=== PATIENT | female | born 1985 | race African-American/Black ===

== ENCOUNTER 2019-05-02 21:42 | Emergency (ER) | payer OTHER ==
--- NOTE | 2019-05-02 21:52 | PDOC ---
Rapid Medical Evaluation Time Seen by Provider: 05/02/19 21:50 Medical Evaluation: 05/02/19 21:50 I have performed a brief in-person evaluation of this patient. The patient presents with a chief complaint of: LMP-03/28. lower abdominal cramping with vaginal bleeding. 1 pad/hr Pertinent physical exam findings: deferred I have ordered the following: labs, urine, sono The patient will proceed to the ED for further evaluation. Discharge Disposition - Diagnosis Vaginal bleeding affecting early - Referrals - Patient Instructions - Post Discharge Activity
[2019-05-02 21:54] VITALS: BP 122/77; PULSE 79; TEMP 98; BMI 26.8
--- NOTE | 2019-05-02 22:13 | PDOC ---
History of Present Illness - General Chief Complaint: Vaginal Bleeding Stated Complaint: 5 WKS /BLEEDING Time Seen by Provider: 05/02/19 21:50 - History of Present Illness Initial Comments: 05/02/19 22:12 33yo F A2 at 5w based on LMP with no significant PMH presenting to ED with complaints of vaginal bleeding x5h. Pt states she was at the store when she noticed light bleeding. She got worried when the blood was darker in color. She has used 1 pad so far. Denies heavy bleeding or passing clots. Endorses lower abdominal cramping. She has not had similar problems in her previous pregnancies. Pt states she has used home tests which have given her mixed results. She has not had any follow up or sonography for her current . Denies trauma, n/v/d, chest pain, sob, lightheadedness, palpitations , urinary symptoms. PMD: Castañeda PMH: none PSH: none Meds: PNV Allergies: nkda Social: denies Past History - Past Medical History Allergies/Adverse Reactions: Allergies Allergy/AdvReac Type Severity Reaction Status Date / Time No Known Allergies Allergy Verified 05/02/19 21:54 COPD: No - Suicide/Smoking/Psychosocial Hx Smoking History: Never smoked Review of Systems - Review of Systems Constitutional: No: Symptoms Reported HEENTM: No: Symptoms Reported Respiratory: No: Symptoms reported Cardiac (ROS): No: Lightheadedness ABD/GI: Yes: See HPI, Abdominal cramping : Yes: See HPI Musculoskeletal: No: Symptoms Reported Integumentary: No: Symptoms Reported Neurological: No: Symptoms reported *Physical Exam - Vital Signs Last Vital Signs Temp Pulse Resp BP Pulse Ox 98 F 79 18 122/77 100 05/02/19 21:51 05/02/19 21:51 05/02/19 21:51 05/02/19 21:51 05/02/19 21:51 - Physical Exam General Appearance: Yes: Nourished, Appropriately Dressed, Other (sitting in wheelchair). No: Apparent Distress HEENT: positive: EOMI, JYOTI Neck: positive: Trachea midline Respiratory/Chest: positive: Lungs Clear, Normal Breath Sounds Cardiovascular: positive: Regular Rhythm, Regular Rate, S1, S2. negative: Edema , JVD, Murmur Female Pelvic Exam: positive: cervical os closed, vaginal bleeding (scant blood in vaginal vault, no clots). negative: CMT, discharge, adnexal tenderness Gastrointestinal/Abdominal: positive: Normal Bowel Sounds, Soft. negative: Tender Musculoskeletal: negative: CVA Tenderness Extremity: positive: Normal Capillary Refill. negative: Pedal Edema, Swelling Integumentary: positive: Normal Color, Dry, Warm Neurologic: positive: dyed raw stock blower feeder II-XII NML intact, Fully Oriented, Alert, Normal Mood/ Affect, Normal Response, Motor Strength 02/24 ED Treatment Course - LABORATORY CBC & Chemistry Diagram: 05/02/19 22:40 05/02/19 22:40 Medical Decision Making - Medical Decision Making 05/02/19 22:46 33yo F A2 at 5w based on LMP with no significant PMH presenting to ED with complaints of vaginal bleeding x5h. Pt states she was at the store when she noticed light bleeding. She got worried when the blood was darker in color. She has used 1 pad so far. Denies heavy bleeding or passing clots. Endorses lower abdominal cramping. She has not had similar problems in her previous pregnancies. Pt states she has used home tests which have given her mixed results. She has not had any follow up or sonography for her current . Denies trauma, n/v/d, chest pain, sob, lightheadedness, palpitations , urinary symptoms. Vitals: wnl PE: closed os, scant blood, soft abdomen. Otherwise normal exam Ddx includes but not limted to ectopic, iup, (missed v. inevitable v. threatened), menstruation, fibroids -labs ordered by [facility] -[facility] Pt not in pain at this time. cramping is light. Will defer on medications at this time. 05/02/19 23:18 Bquant 10. pending US results. 05/03/19 00:55 US Ultrasound :Uterus is anteverted and measures centimeters in length. There is no IUP identified. There is a 2.2 cm posterior fundal subserosal fibroid and a 7 mm mid fundal intramural fibroid.. The right ovary measures 3.0centimeters in length and appears normal. The left ovary measures two-pointcentimeters in length and appears normal. 05/03/19 00:58 Pt is stable, US results given. Given return precautions and dc instructions as well as welding pantograph machine operator referral. *DC/Admit/Observation/Transfer Diagnosis at time of Disposition: Vaginal bleeding affecting early - Discharge Dispostion Disposition: HOME Condition at time of disposition: Good Decision to Admit order: No - Referrals Referrals: Angle Castañeda NP [Primary Care Provider] - Carri Rahman MD [Staff Physician] - Ned Mckeon MD [Staff Physician] - - Patient Instructions Printed Discharge Instructions: DI for Vaginal Bleeding Additional Instructions: You were seen in the emergency room today for vaginal bleeding. The ultrasound results were provided to you. It may be an early , a miscarriage or ectopic . I highly recommend that you follow up with an welding pantograph machine operator. Referral is provided below. You can come back to the emergency room for repeat blood testing in 2 days. You can take Tylenol for pain as needed. Come back to the emergency room if bleeding gets worse, you have worsening abdominal pain or if any new concerning symptom develops. Thank you - Post Discharge Activity
[2019-05-02 22:53] LABS: BASO % 1.4 % (0-2.0); EOS % 1.7 % (0-4.5); HEMATOCRIT 34.6 % (32.4-45.2); HEMOGLOBIN 11.3 GM/dL (10.7-15.3); LYMPH % 37.7 % (8-40); MCH 26.5 pg (25.7-33.7); MCHC 32.6 g/dl (32.0-36.0); MEAN CELL VOLUME 81.3 fl (80-96); MEAN PLT VOLUME 7.8 fl (7.5-11.1); MONO % 6.8 % (3.8-10.2); NEUT % 52.4 % (42.8-82.8); PLATELET COUNT 300 K/MM3 (134-434); RBC 4.26 M/mm3 (3.60-5.2); RDW 18.1 % (11.6-15.6); WHITE BLOOD COUNT 7.9 K/mm3 (4.0-10.0)
[2019-05-02 23:12] LABS: BLOOD UREA NITROGEN 12.4 mg/dL (7-18); CALCIUM 8.6 mg/dL (8.5-10.1); CREATININE 0.7 mg/dL (0.55-1.3); POTASSIUM 3.5 mmol/L (3.5-5.1)
--- NOTE | 2019-05-02 23:28 | PDOC ---
Documentation entered by Valente Lovett SCRIBE, acting as scribe for Alida Mayo MD. Alida Mayo MD: This documentation has been prepared by the Bony jay Xhesika, SCRIBE, under my direction and personally reviewed by me in its entirety. I confirm that the documentation accurately reflects all work, treatment, procedures, and medical decision making performed by me. Attending Attestation - Resident Resident Name: Marium Sahu - ED Attending Attestation I have performed the following: I have examined & evaluated the patient, The case was reviewed & discussed with the resident, I agree w/resident's findings & plan - HPI HPI: 05/02/19 22:45 The patient is a 33 year old female, , with no significant medical history who present to the ED with 5 hours of vaginal bleeding. The patient states she took a couple of tests at home, some were positive and some were negative. The patient notes she used 1 pad today after she endorsed light dark red bleeding. The patient states she endorses lower abdominal cramping secondary to her symptoms. Patient states her periods are regular and her LMP was 03/28/19. Patient denies similar symptoms with her previous pregnancies. Patient denies passing clots The patient denies chest pain, shortness of breath, headache and dizziness. Denies fever, chills, nausea, vomiting, diarrhea and constipation. Denies dysuria, frequency, urgency and hematuria. Allergies: NKA PCP: Angle Castañeda - Physicial Exam PE: 05/02/19 22:46 Agree with the resident's HPI and PE as documented in the electronic medical record. NAD, well appearing, EOMI, PERRL, nl conjunctiva, anicteric; neck supple. lungs clear, RRR, abdomen soft nontender. Back nontender. CHEN x4, no focal neuro deficits. No peripheral edema. normal color for ethnicity, WWP. pelvic exam performed by resident, see documentation 05/02/19 23:24 - Medical Decision Making 05/02/19 23:27 DDx female VB: ectopic , miscarriage, demise, subchorionic hematoma, retained POC, normal first trimester bleeding, UTI in in . Fibroid uterus, vaginitis, infection, electrolyte/metabolic derangements, anemia. MDM: Rh positive, no rhogam indicated VS wnl, abdomen benign, no VB here, controlled Beta hcg 9 TVUS - no IUP, could be early vs miscarriage vs ectopic, no pelvic FF. normal ovarian flow, no e/o torsion fibroid seen in the myometrium discussed results with patient and family member, impression and plan. this is more likely miscarriage with low beta hcg and no IUP seen Dispo: OB followup, Mike Jimenez on calls, bleeding precautions; return to ED if persistent and heavy vaginal bleeding, persistent pelvic pain not relieved by your prescribed medications, dizziness, shortness of breath, new and persistent fevers, other foul smelling discolored vaginal discharge, or for any other concerns. 05/03/19 00:56 05/03/19 00:57
[2019-05-02 23:57] LABS: EPI CELLS 0.8 /HPF (0-5/HPF); HYALINE CASTS 5 /lpf (0-8); URINE APPEARANCE CLOUDY; URINE BACTERIA 127.5 /hpf (NEGATIVE); URINE BILIRUBIN NEGATIVE (NEGATIVE); URINE COLOR DK YELLOW; URINE GLUCOSE (UA) NEGATIVE (NEGATIVE); URINE KETONE TRACE (NEGATIVE); URINE LEUK ESTERASE 1+ (NEGATIVE); URINE NITRITE NEGATIVE (NEGATIVE); URINE PROTEIN 1+ (NEGATIVE); URINE RBC 483 /hpf (0-4); URINE WBC 26 /hpf (0-5)
== END 2019-05-03 01:16 | disposition home or self-care (01) ==
LOC: JER 21:42
DX: O26.891 Other specified pregnancy related conditions, first trimester (principal); O20.8 Other hemorrhage in early pregnancy; Z3A.01 Less than 8 weeks gestation of pregnancy
CPT/HCPCS: 36415; 76817-TC; 80048; 81003; 84702; 85025; 86850; 86900; 86901; 87086; 99282-25

== ENCOUNTER 2019-08-19 13:22 | Emergency (ER) | payer OTHER ==
--- NOTE | 2019-08-19 13:37 | PDOC ---
Rapid Medical Evaluation Time Seen by Provider: 08/19/19 13:35 Medical Evaluation: Allergies Allergy/AdvReac Type Severity Reaction Status Date / Time No Known Allergies Allergy Verified 05/02/19 21:54 08/19/19 13:35 HPI: Blood on toilet paper x1 day PE: Rectal deferred; no gross deficits otherwise ORDERS: nothing Discharge Disposition - Diagnosis Rectal bleed - Referrals - Patient Instructions - Post Discharge Activity
[2019-08-19 13:39] VITALS: BP 119/81; PULSE 91; TEMP 98; BMI 25.7
--- NOTE | 2019-08-19 16:02 | PDOC ---
History of Present Illness - General Chief Complaint: Rectal Bleed Stated Complaint: RECTAL BLEED Time Seen by Provider: 08/19/19 13:35 History Source: Patient - History of Present Illness Travel History: Yes Initial Comments: 08/19/19 16:02 33 year old female with medical history of prediabetes and uterinepolypectomy presents because she saw light colored blood in stools this am. Reports no constipation, no hemorrhoids or anal trauma. Denies nausea vomiting or black tarry stools. Timing/Duration: reports: other (this am) Quality: reports: mild Abdominal Pain Onset Location: reports: other (none) Pain Radiation: reports: no radiation Activities at Onset: reports: none Treatment Prior to Arrive: improves with: analgesics Aggravating Factors: improves with: None Alleviating Factors: improves with: None Past History - Travel Traveled outside of the country in the last 30 days: Yes Close contact w/someone who was outside of country & ill: No - Past Medical History Allergies/Adverse Reactions: Allergies Allergy/AdvReac Type Severity Reaction Status Date / Time No Known Allergies Allergy Verified 08/19/19 13:38 COPD: No - Psycho Social/Smoking Cessation Hx Smoking History: Never smoked Have you smoked in the past 12 months: No Information on smoking cessation initiated: No Hx Alcohol Use: No Drug/Substance Use Hx: No Abd/GI Specific PMHX - Complaint Specific PMHX Colitis: No Gall Bladder Disease: No Hepatitis: No Pancreatitis: No Review of Systems - Review of Systems Able to Perform ROS?: Yes Is the patient limited Brazilian proficient: No Constitutional: No: Chills, Fever HEENTM: No: Nose Pain, Throat Pain Respiratory: No: Shortness of Breath, Wheezing Cardiac (ROS): No: Edema, Syncope ABD/GI: No: Constipated, Diarrhea, Poor Appetite, Vomiting, Indigestion Integumentary: No: Bruising, Erythema, Rash Neurological: No: Headache, Numbness, Tingling Psychiatric: No: Stressors Endocrine: No: Intolerance to Heat *Physical Exam - Vital Signs Last Vital Signs Temp Pulse Resp BP Pulse Ox 98 F 91 H 16 119/81 100 08/19/19 13:38 08/19/19 13:38 08/19/19 13:38 08/19/19 13:38 08/19/19 13:38 - Physical Exam General Appearance: Yes: Nourished, Appropriately Dressed. No: Apparent Distress HEENT: positive: TMs Normal, Pharynx Normal Neck: positive: Supple. negative: Lymphadenopathy (R), Lymphadenopathy (L) Respiratory/Chest: positive: Lungs Clear, Normal Breath Sounds Cardiovascular: positive: Regular Rhythm, Regular Rate Gastrointestinal/Abdominal: positive: Soft. negative: Guarding, Tenderness, Hernia Rectal Exam: positive: normal exam. negative: heme positive stool, hemorrhoids Neurologic: positive: Fully Oriented, Alert Medical Decision Making - Medical Decision Making 08/19/19 16:07 33 year old female with medical history of prediabetes and uterinepolypectomy presents because she saw light colored blood in stools this am. #blood with wiping after defecation this am ; rectal bleeding -stool sent for occult blood 08/19/19 16:40 negative stool for guiac blood Discharge - Discharge Information Problems reviewed: Yes Clinical Impression/Diagnosis: Rectal bleed Condition: Good Disposition: HOME - Admission No - Follow up/Referral - Patient Discharge Instructions Patient Printed Discharge Instructions: DI for Rectal Bleeding Additional Instructions: -Please call doctor for follow up appointment -Drink plenty fluids -Return for worsening bleeding. - Post Discharge Activity
== END 2019-08-19 17:09 | disposition home or self-care (01) ==
LOC: JERFT 13:22
DX: K62.5 Hemorrhage of anus and rectum (principal); R19.5 Other fecal abnormalities; R73.03 Prediabetes; Z98.890 Other specified postprocedural states
CPT/HCPCS: 36415; 82272; 99281-25